=== PATIENT | female | born 1940 | race Caucasian/White ===

== ENCOUNTER 2019-10-28 17:42 | Outpatient (CLI) | payer MEDICARE, OTHER | END 2019-10-28 17:43 | disposition home or self-care (01) | LOC: COV 17:42 | PROVIDERS: ATTEND Family Medicine | DX: R05 Cough (principal); R50.9 Fever, unspecified | CPT/HCPCS: 81599 ==

== ENCOUNTER 2020-02-13 15:21 | Outpatient (CLI) | payer MEDICARE, OTHER ==
[2020-02-13 20:43] LABS: HB2 TOTAL 13.2 g/dL; HEMOGLOBIN A1C 0.73 g/dL; HEMOGLOBIN A1C % 7.2 % (4.6-6.2)
== END 2020-02-13 15:22 | disposition home or self-care (01) ==
LOC: LAB.S 15:21
PROVIDERS: ATTEND Nurse Practitioner
DX: E10.42 Type 1 diabetes mellitus with diabetic polyneuropathy (principal)
CPT/HCPCS: 36415; 80048; 83036; 84443

== ENCOUNTER 2020-02-13 21:13 | Outpatient (CLI) | payer MEDICARE, OTHER | END 2020-02-13 21:14 | disposition critical access hospital (66) | LOC: EMS 21:13 | PROVIDERS: ATTEND Surgery | DX: R73.09 Other abnormal glucose (principal); R53.1 Weakness; H53.8 Other visual disturbances | CPT/HCPCS: A0425; A0427 ==

== ENCOUNTER 2020-02-13 21:50 | Inpatient (IN) | payer MEDICARE, OTHER ==
[2020-02-13] MEDS ORDERED: SODIUM CHLORIDE 0.9% 1,000 ML IV STA ×2 (21:56)
--- NOTE | 2020-02-13 21:59 | ED Physician Documentation ---
History of Present Illness - Stated complaint Stated Complaint: HIGH BLOOD SUGAR - History obtained from History obtained from: Patient (Patient is a 79-year-old female insulin- dependent diabetic who presents with dysuria and hyperglycemia.She denies any chest pain or headache or neck pain she reports a history of recurrent urinary tract infections.Patient receives her primary care at the [facility].) Review of Systems Constitutional: reports: Reviewed and negative Eyes: reports: Reviewed and negative Ears: reports: Reviewed and negative Nose: reports: Reviewed and negative Throat: reports: Reviewed and negative Cardiac: reports: Reviewed and negative Respiratory: reports: Reviewed and negative GI: reports: Reviewed and negative : reports: Dysuria Skin: reports: Rash, Other (Rash to bilateral lower extremities) Musculoskeletal: reports: Reviewed and negative Neurologic: reports: Reviewed and negative Psychiatric: reports: Reviewed and negative Endocrine: reports: Reviewed and negative Immunocompromised: reports: Reviewed and negative PD PAST MEDICAL HISTORY - Present Medications Home Medications: Ambulatory Orders Medication Instructions Recorded Confirmed Clopidogrel [Plavix] 75 mg PO DAILY 02/13/20 02/13/20 Losartan [Cozaar] 50 mg PO DAILY 02/13/20 02/13/20 Metoprolol Tartrate 50 mg PO DAILY 02/13/20 02/13/20 Chlorthalidone 12.5 mg PO DAILY 02/14/20 02/14/20 Pravastatin [Pravachol] 10 mg PO DAILY 02/14/20 02/14/20 - Allergies Allergies/Adverse Reactions: Allergies Allergy/AdvReac Type Severity Reaction Status Date / Time Antihistamines - Alkylamine Allergy Unknown Verified 02/13/20 22:09 Sulfa (Sulfonamide Allergy Unknown Verified 02/13/20 22:09 Antibiotics) PD ED PE NORMAL - Vitals Vital signs reviewed: Yes - General General: Alert and oriented X 3, No acute distress - HEENT HEENT: PERRL - Neck Neck: Supple, no meningeal sign - Cardiac Cardiac: RRR, No murmur - Respiratory Respiratory: Clear bilaterally - Abdomen Abdomen: Normal bowel sounds, Soft, Non tender, Non distended - Derm Derm: Warm and dry - Extremities Extremities: No deformity - Neuro Neuro: Alert and oriented X 3 - Psych Psych: Normal mood, Normal affect Results - Vitals Vitals: Vital Signs - 24 hr 02/13/20 21:50 Temperature 37.1 C Heart Rate 106 H Respiratory 20 Rate Blood Pressure 153/77 H O2 Saturation 97 Oxygen O2 Source Room air - EKG (time done) 04:41 Rate: Other (no stemi) - Labs Labs: Laboratory Tests 02/13/20 02/13/20 02/13/20 22:15 23:25 23:25 WBC 12.2 H RBC 4.31 Hgb 12.1 Hct 36.3 L MCV 84.2 MCH 28.1 MCHC 33.3 RDW 12.8 Plt Count 256 MPV 10.1 Neut # (Auto) 10.4 H Lymph # (Auto) 1.1 L Valley # (Auto) 0.6 Eos # (Auto) 0.0 Baso # (Auto) 0.1 Absolute Nucleated RBC 0.00 Nucleated RBC % 0.0 VBG pH VBG pCO2 VBG pO2 VBG HCO3 VBG Total CO2 VBG O2 Saturation VBG Base Excess Sodium 126 L Potassium 4.3 Chloride 88 L Carbon Dioxide 21 Anion Gap 17.0 H BUN 37 H Creatinine 1.1 H Estimated GFR (MDRD) 48 L Glucose 529 H* Lactic Acid Calcium 9.8 Total Bilirubin 0.9 AST 19 ALT 21 Alkaline Phosphatase 77 Troponin I High Sens Total Protein 7.3 Albumin 3.9 Globulin 3.4 Albumin/Globulin Ratio 1.1 Urine Color YELLOW Urine Clarity HAZY Urine pH 5.0 Ur Specific Harvard 1.020 Urine Protein NEGATIVE Urine Glucose (UA) >=1000 H Urine Ketones 40 H Urine Occult Blood TRACE-INTA Urine Nitrite NEGATIVE Urine Bilirubin NEGATIVE Urine Urobilinogen 0.2 (NORMAL) Ur Leukocyte Esterase NEGATIVE Urine RBC 6-10 H Urine WBC >25 H Ur Squamous Epith Cells FEW Squamous Urine Bacteria Many H Ur Microscopic Review INDICATED Urine Culture Comments INDICATED Serum Ketones SMALL H 02/13/20 02/13/20 02/13/20 23:25 23:25 23:25 WBC RBC Hgb Hct MCV MCH MCHC RDW Plt Count MPV Neut # (Auto) Lymph # (Auto) Valley # (Auto) Eos # (Auto) Baso # (Auto) Absolute Nucleated RBC Nucleated RBC % VBG pH 7.306 L VBG pCO2 42.0 VBG pO2 152.5 H VBG HCO3 20.5 L VBG Total CO2 21.8 L VBG O2 Saturation 98.9 H VBG Base Excess -5.6 L Sodium Potassium Chloride Carbon Dioxide Anion Gap BUN Creatinine Estimated GFR (MDRD) Glucose Lactic Acid 1.7 Calcium Total Bilirubin AST ALT Alkaline Phosphatase Troponin I High Sens 55.3 H* Total Protein Albumin Globulin Albumin/Globulin Ratio Urine Color Urine Clarity Urine pH Ur Specific Harvard Urine Protein Urine Glucose (UA) Urine Ketones Urine Occult Blood Urine Nitrite Urine Bilirubin Urine Urobilinogen Ur Leukocyte Esterase Urine RBC Urine WBC Ur Squamous Epith Cells Urine Bacteria Ur Microscopic Review Urine Culture Comments Serum Ketones PD MEDICAL DECISION MAKING - ED course Complexity details: reviewed results, re-evaluated patient, considered differential (Insulin-dependent diabetes, hyperglycemia, urinary tract infection, dehydration, DKA. ), d/w patient, d/w managing consultant clinical professor, other (patient well appearing on exam. labs show dehydration and UTI. patient to be treated with IVF and insulin as well as antibiotics. spoke with hospitalist who agrees to accept this patient. patient updated and agreeable to admission.) - Consults Consults: Discussed case with (dr hiral emerson. will accept.), Request managing consultant clinical professor admit patient Departure - Departure Disposition: 66 [facility] DC/Xfer Clinical Impression: Hyperglycemia, Hyponatremia Urinary tract infection Qualifiers: Urinary tract infection type: acute cystitis Hematuria presence: without hematuria Qualified Code(s): N30.00 - Acute cystitis without hematuria Condition: Stable Discharge Date/Time: 02/14/20 00:25
[2020-02-13] MEDS ORDERED: cefTRIAXone 1 GM in SODIUM CHLORIDE 0.9% MINIBAG 100 ML IV STA (22:18)
[2020-02-13 22:37] LABS: BILIRUBIN,URINE NEGATIVE (NEGATIVE); GLUCOSE, URINE (UA) >=1000 mg/dL (NEGATIVE); KETONES,URINE (UA) 40 mg/dL (NEGATIVE); LEUKOCYTE ESTERASE, URINE NEGATIVE (NEGATIVE); NITRITE,URINE NEGATIVE (NEGATIVE); OCCULT BLOOD,URINE TRACE-INTA (NEGATIVE); PROTEIN,URINE NEGATIVE (NEGATIVE); UROBILINOGEN,URINE 0.2 (NORMAL) E.U./dL (NORMAL)
[2020-02-13 22:40] LABS: CLARITY,URINE HAZY (CLEAR)
[2020-02-13 22:50] LABS: BACTERIA,URINE Many /HPF (None Seen); SQUAMOUS EPITHELIAL CELL,UR FEW Squamous (<= Few)
[2020-02-13 23:41] LABS: BASOPHILS # (AUTO) 0.1 10^3/uL (0.0-0.1); BASOPHILS % (AUTO) 0.4 %; EOSINOPHILS % (AUTO) 0.2 %; HGB - HEMOGLOBIN 12.1 g/dL (12.0-16.0); LYMPHOCYTES # (AUTO) 1.1 10^3/uL (1.5-3.5); LYMPHOCYTES % (AUTO) 8.8 %; MEAN CORPUSCULAR HEMOGLOBIN 28.1 pg (27.0-31.0); MEAN CORPUSCULAR HGB CONC 33.3 g/dL (32.0-36.0); MEAN CORPUSCULAR VOLUME 84.2 fL (81.0-99.0); MEAN PLATELET VOLUME 10.1 fL (7.9-10.8); MONOCYTES # (AUTO) 0.6 10^3/uL (0.0-1.0); MONOCYTES % (AUTO) 4.7 %; NEUTROPHILS # (AUTO) 10.4 10^3/uL (1.5-6.6); NEUTROPHILS % (AUTO) 85.5 %; PLT - PLATELET COUNT 256 10^3/uL (130-450); RED BLOOD COUNT 4.31 10^6/uL (4.20-5.40); RED CELL DISTRIBUTION WIDTH 12.8 % (12.0-15.0); WHITE BLOOD COUNT 12.2 x10^3/uL (4.8-10.8)
[2020-02-13 23:48] LABS: VBG BASE EXCESS -5.6 mmol/L (-2 - +2); VBG PH 7.306 (7.31-7.41); VBG PO2 152.5 mmHg (25-47); VBG TOTAL CO2 21.8 mmol/L (24-29)
[2020-02-13 23:51] LABS: ALKALINE PHOSPHATASE 77 IU/L (42-121); ALT ALANINE AMINOTRANSFERASE 21 IU/L (10-60); AST ASPARTATE AMINOTRANSFERASE 19 IU/L (10-42); BILIRUBIN,TOTAL 0.9 mg/dL (0.2-1.0); BUN - BLOOD UREA NITROGEN 37 mg/dL (6-20); CALCIUM 9.8 mg/dL (8.5-10.3); CARBON DIOXIDE - CO2 21 mmol/L (21-32); CHLORIDE 88 mmol/L (101-111); CREATININE 1.1 mg/dL (0.4-1.0); SODIUM 126 mmol/L (135-145)
[2020-02-13 23:52] LABS: ALBUMIN 3.9 g/dL (3.2-5.5); ALBUMIN/GLOBULIN RATIO 1.1 (1.0-2.2); TOTAL PROTEIN 7.3 g/dL (6.7-8.2)
[2020-02-13 23:53] LABS: GLUCOSE 529 mg/dL (70-100)
[2020-02-13 23:59] LABS: KETONES, SERUM (ACETEST) SMALL (NEGATIVE)
[2020-02-14] MEDS ORDERED: ACETAMINOPHEN 325 MG TABLET PO PRN (00:02)
[2020-02-14] MEDS ORDERED: oxyCODONE 5 MG TABLET PO PRN (00:02)
[2020-02-14] MEDS ORDERED: ONDANSETRON ODT 4 MG TABLET TL PRN (00:02)
[2020-02-14] MEDS ORDERED: ONDANSETRON 4 MG/2 ML VIAL IVP PRN (00:02)
[2020-02-14] MEDS ORDERED: SODIUM CHLORIDE 0.9% 1,000 ML IV ONE (00:06)
[2020-02-14] MEDS ORDERED: INSULIN REGULAR HUMAN 100 UNIT/1 ML 10 ML MDV IVP STA (00:09)
[2020-02-14] MEDS ORDERED: INSULIN GLARGINE 300 UNIT/3 ML PEN SUBQ ONE (00:11)
--- NOTE | 2020-02-14 00:13 | HISTORY & PHYSICAL EXAMINATION ---
Chief Complaint - Chief Complaint Chief Complaint: told to come to ER by clinic History of Present Illness - Admitted From Admitted From:: Home/ER - History Obtained From Records Reviewed: [facility] and [facility] History obtained from: patient, EMR and Dr. Robbins - History of Present Illness HPI Comment/Other: Pleasant 79-year-old female who has type 1 diabetes mellitus and is on insulin pump. She gets her care at the [facility], and for the last few days has been noticing that her sugars have been climbing. In addition to that she felt as if she was having some type of allergic reaction on her legs. She walks through some grass and is felt that her legs have been swollen since that time with sores on her shins that it persisted. 10 days ago she noted pink coloration around her shins and attributed that to sunburn. She denies cough, dyspnea on exertion, orthopnea. She has had no chest pain, palpitations. She has had no sweats, fever, chills. Denies urgency, frequency. Because of the increasing sugar that was 510 this morning she called her doctor at the [facility] and they told her to seek care. She took her self to the walk-in clinic. At the walk-in clinic she was 371. At the walk-in clinic she was normotensive, afebrile, with a normal pulse. Normal oxygenation. Urinalysis had a cloudy appearance with 2+ leukocytes, negative nitrates, trace protein, large amount of ketones, and on examination had 2+ pitting edema of her legs bilaterally. There was erythema of both legs with 1 cm diameter lesions in various stages of healing. Some with eschar. Weeping, yellow serous fluid. The legs were minimally tender. She had a peripheral neuropathy. From the clinic she was asked to please report to the emergency room. That was around 4:30 in the afternoon. But she drove home because she had to take care of a situation with her dog and then get transported to the emergency room. In our emergency room at 11:30 at night she was again with normal vital signs except for a slight temp of 37.1. Heart rate was now 106. The emergency room provider reported normal extremity exam. White cell count was elevated at 12.2, venous blood gas was 7.30 with a PCO2 42. Bicarb 20.5 and low. Base excess - 5.6. Lactic acid 1.7. Sodium was 126. Potassium was normal at 4.3. BUN 37, creatinine 1.1, glucose 529. Liver enzymes were normal. Urinalysis had ketonuria, glucosuria, but no leukocyte Estrace. She was 6-10 red cells per high-power field, greater than 25 white cells, a few squamous cells. She also had many bacteria. It has been sent for culture. The emergency room physician felt that she was in early DKA. He did not feel that she needed the DKA protocol and felt that she could be admitted to [facility] as opposed to ICU. The admitting diagnosis of hyperglycemia with ketonuria (early DKA) from a UTI, and I am adding possible lower leg cellulitis from the history in the walk-in clinic. History - Past Medical History Cardiovascular: reports: Hypertension, Coronary artery disease (First heart attack 20 years ago when she was in [facility]. Associated with working out in the heat. She then had another heart attack in 2005 or 2006. Angiogram was done in [place] and she gives a report that her arteries were wide open. Since that time she has been on a statin and a) Respiratory: reports: None Neuro: reports: CVA (small lacunar in 2016. Presented is photophobia and problems with walking to the emergency room in the [facility] on [facility]. She has had MRI confirmed the small stroke. She has been on Plavix since then.), Peripheral neuropathy Endocrine/Autoimmune: reports: Type 1 diabetes (Diagnosed when she was in grad uate school when she was in an accident and traumatized her pancreas. They postulate that she may have had type I for many years, and went back as far as the age of 12 when she was ill with some type of viral illness at the same time polio was occurring. 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 First loss was a miscarriage. With her second baby she needed to have a hysterectomy for symptoms. It was not found out till after she had a hysterectomy and they did pathology analysis they found out she was with her fourth child and did not know it.) : reports: Incontinence HEENT: reports: Chronic vision loss, Other (Cataracts removed) Psych: reports: None Musculoskeletal: reports: Osteoarthritis Derm: reports: None MRSA Hx?: No - Past Surgical History /FIG BAR MACHINE OPERATOR: reports: Hysterectomy, Oophrectomy Cardiovascular: reports: Other (Coronary angiogram) HEENT: reports: Cataracts - Family & Social History Family History Comment/Other: father in his 90s of old age. Mom at age 50 of metastatic ovarian. Sister is alive and well and healthy. 2 children are healthy Living arrangement: At home Living Situation: Alone Social History Notes: She was born and raised in [place]. But she has lived all over the [facility] from [place] to [place] to [facility]. At one point she was working for the [employer] and also lived in [place]. She has been once and then him. Never remarried. She considers herself a loner and a recluse. 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 She is currently arguing with her ex- and her ex-'s employee benefits attorney since her spousal support has been cut by two thirds. One daughter lives in [place], 1 son lives in [place]. She never smoked. She rarely drinks. 1 Godwin Olguin will l ast for 4 days. She is a rare glass of red wine because she likes it. She is never had a problem with alcohol abuse or recreational substance abuse. - Substance History Use: Uses substance without health or social issues: NONE Abuse: Recurrent use of substance despite neg consequences: NONE Dependence: Experiences withdrawal or developed tolerances: NONE - POLST Patient has POLST: No POLST Status: Full Code Meds/Allgy - Home Medications Home Medications: Ambulatory Orders Medication Instructions Recorded Confirmed Clopidogrel [Plavix] 75 mg PO DAILY 02/13/20 02/13/20 Hydrochlorothiazide 12.5 mg PO DAILY 02/13/20 02/13/20 Losartan [Cozaar] 50 mg PO DAILY 02/13/20 02/13/20 Metoprolol Tartrate 50 mg PO DAILY 02/13/20 02/13/20 - Allergies Allergies/Adverse Reactions: Allergies Allergy/AdvReac Type Severity Reaction Status Date / Time Antihistamines - Alkylamine Allergy Unknown Verified 02/13/20 22:09 Sulfa (Sulfonamide Allergy Unknown Verified 02/13/20 22:09 Antibiotics) Review of Systems - Constitutional Constitutional: reports: Fatigue, Weight loss (She used to eat out a lot. But once staying in place orders occurred because of Kovic, she has been eating her own cooking and she hates it. So she is lost about 12 to 16 pounds.). denies: Fever, Chills, Malaise, Weakness, Poor appetite, Diaphoresis - Eyes Eyes: reports: Vision loss. denies: Pain, Irritation, Blurred vision - Ears, Nose & Throat Ears, Nose & Throat: denies: Ear pain, Hearing loss, Nasal discharge, Sore throat, Hoarseness - Cardiovascular Cariovascular: reports: Edema (Chronic in her legs. Ongoing for a couple of years. She sees a milk receiver at [facility] and they have done vascular studies of her legs to show that she has venous insufficiency. It is not from congestive heart failure. They recommended compression stockings and low-dose chlorthalidone at). denies: Irregular heart rate, Palpitations, Chest pain - Respiratory Respiratory: denies: Cough, Sputum production, Wheezing, Snoring - Gastrointestinal Gastrointestinal: reports: Constipation. denies: Abdominal pain, Abdominal distention, Diarrhea, Change in bowel habits, Rectal bleeding, Bloody stools, Nausea, Vomiting - Genitourinary Genitourinary: reports: Incontinence. denies: Dysuria, Frequency, Urgency, Hematuria - Musculoskeletal Musculoskeletal: reports: Back pain. denies: Muscle pain, Muscle aches, Stiffness, Muscle weakness, Gout, Joint pain - Integumentary Integumentary: reports: Rash (Started about 10 days ago with a light redness of her shins. Then the scratching started because of walking through the grass and allergic reaction. Redness of her legs with heat of the skin and oozing sores are new over the last 2 weeks.), Lesions - Neurological Neurological: reports: Dizziness. denies: General weakness, Focal weakness, Headache, Memory problems, Pre-existing deficit, Abnormal gait - Psychiatric Psychiatric: denies: Depression, Anxiety, Suicidal - Endocrine Endocrine: denies: Polyuria, Polydypsia, Polyphagia - Hematologic/Lymphatic Hematologic/Lymphatic: denies: Anemia, Bruising, Petechiae Prior Level of Functionality: She is a recluse and has hired somebody to come clean the house once a week. But she still bathes herself, drives herself, pays her own bills, and tries to cook for herself but hates cooking. She prefers to eat out. Her plan is to always stay in her home. She will hire / care providers if the need comes. Exam - Vital Signs Reviewed Vital Signs: Yes Vital Signs: Vital Signs x48h Temp Pulse Resp BP Pulse Ox 02/13/20 21:50 37.1 C 106 H 20 153/77 H 97 - Physical Exam General Appearance: positive: No acute distress, Alert, Other (A little cranky. Is late at night, she just wants to go to sleep and cannot believe what a fuss people are making.) Eyes Bilateral: positive: PERRL, EOMI ENT: positive: Dry mucous membranes Neck: positive: Thyroid nml, No JVD Respiratory: positive: Chest non-tender, No respiratory distress. negative: Wheezes, Rales, Rhonchi Cardiovascular: positive: Regular rate & rhythm. negative: Gallop/S4, Friction rub Peripheral Pulses: positive: 1+ Abdomen: positive: Non-tender, No organomegaly, Nml bowel sounds, No distention Skin: positive: Warm, Dry Extremities: positive: Other (Her legs have the shrunken down appearance of someone whose had tight edema and the edema is now resolving. In addition to the shrunken wrinkled appearance of the skin, she has open oozing ulcers that are all approximately 6 to 7 mm. Similar in various stages of healing. Some are still fresh and) Neurologic/Psychiatric: positive: Oriented x3, CN's nml (2-12), Motor nml Conclusion/Plan - Problem List (1) DKA, type 1 Conclusion/Plan: Porter to be mild, not needing ICU DKA protocol per ER doctor.He does not feel that there is any other source of her DKA other than infection from the urine at this time. Troponins were done and were 55.9 in the emergency room. Aic is 7.2% Plan: As such we will start to fluid resuscitate aggressively on Med Surg 1 L normal saline wide open now. She has received 1 L in the emergency room Since I cannot do an insulin drip on the floor, will do Lantus 10 units right now, Lantus in the morning, 10 units IV push insulin now, and insulin every 6 hours high sliding scale She has disconnected her own insulin pump Check BMP in 4 hours Monitor electrolytes frequently and supplement since the patient would be at risk for hypokalemia, hypocalcemia, hypophosphatemia, and hypomagnesemia. Repeat troponins in 2 hours and 6 hours Check EKG. EKG and troponins are to make sure she is not having an OH as the cause of her DKA. Treat cause of infection Qualifiers: Diabetes mellitus complication detail: without coma Qualified Code(s): E10.10 - Type 1 diabetes mellitus with ketoacidosis without coma (2) Urinary tract infection Conclusion/Plan: Unfortunately she has many squamous cells on urinalysis. This could be a contaminant. Bacteria could be from her vagina and she may not have a UTI. She is already received 1 dose of Rocephin in the emergency room and urine has been submitted for culture. On review of systems she is negative for urgency, frequency, incontinence, hematuria. She does have some slight back pain. Plan: Rocephin daily would be the treatment but since I am treating cellulitis as well, willl not repeat dosing Adjust antibiotics on the basis of culture Qualifiers: Urinary tract infection type: acute cystitis Hematuria presence: without hematuria Qualified Code(s): N30.00 - Acute cystitis without hematuria (3) Bilateral lower leg cellulitis Conclusion/Plan: She has had by lower lateral extremity changes since "walking through the grass". She attributes this to allergic response. She does not have the a ppearance of erythema nodosum. Or pyoderma gangrenosum. But she has a low- grade fever, elevated white cell count, and a newly uncontrolled diabetes type 1. Her cellulitis may be the source of her hyperglycemia as opposed to the urine. Plan: Already on Rocephin for UTI In reviewing [place] antibiotic guide, diabetics with erysipelas/cellulitis are at risk for Streptococcus, staph aureus, Enterobacter, and anaerobes. Early or mild infection can get away with Bactrim and penicillin. However for hospitalized patients, which she is now going to be, they recommend a carboplatinum plus staph coverage. In this hospital we use meropenem and I will add the Nasalide as opposed to vancomycin to avoid nephrotoxicity. Rocephin is already been given, as such blood cultures may not help. But will order blood cultures anyway. (4) Acute kidney injury Conclusion/Plan: At this time unable to quantitate. We have no old records to compare to. At 1540 in the afternoon her creatinine was 1. When she returned to us tonight she is 1.1. This could be attributed to prerenal azotemia with a BUN of 37. Plan: IV fluids for hydration Avoid nephrotoxic medications (5) Hyponatremia Conclusion/Plan: with elevated glucose. It's not HONK but I do suspect free water losses with her hypoglycemia Plan: NS and repeat labs. (6) Hypertension Conclusion/Plan: resume metoprolol and hold losartan for GLENROY and chlorthalidone until hydrated. Qualifiers: Hypertension type: essential hypertension Qualified Code(s): I10 - Essentia l (primary) hypertension - Lab Results Lab results reviewed: Yes Carlton Bones: 02/13/20 23:25 02/13/20 23:25 - EKG Results EKG Interpreted Independently: No EKG Comparison: Old EKG unavailable EKG Findings: She has sinus tachycardia 207. PAC. Left bundle branch block with poor R wave progression, inversion of T waves V4 through V6. Core Measures - Anticipated LOS I expect patient to be DC'd or transferred within 96 hours.: Yes - DVT/VTE - Prophylaxis VTE/DVT Device ordered at admit?: Yes
[2020-02-14] MEDS: SODIUM CHLORIDE FLUSH 0.9% 10 ML SYRINGE IVP SCH ×3 (01:21→16:53)
[2020-02-14] MEDS: METOPROLOL TARTRATE 50 MG TABLET PO SCH ×3 (01:36→21:14)
[2020-02-14 01:46] LABS: CALCIUM 9.2 mg/dL (8.5-10.3); CREATININE 1.1 mg/dL (0.4-1.0)
[2020-02-14] MEDS: MEROPENEM 500 MG in SODIUM CHLORIDE 0.9% MINIBAG 100 ML IV SCH ×3 (02:26→16:32)
[2020-02-14] MEDS: LINEZOLID 600 MG/300 ML 600 MG/300 ML BAG IV SCH ×2 (02:56→12:03)
[2020-02-14 06:00] LABS: CALCIUM 8.6 mg/dL (8.5-10.3)
[2020-02-14] MEDS: PANTOPRAZOLE 40 MG VIAL IVP SCH (06:07)
[2020-02-14] MEDS: SODIUM CHLORIDE FLUSH 0.9% 10 ML SYRINGE IVP PRN (06:08)
[2020-02-14 06:16] LABS: MAGNESIUM 1.8 mg/dL (1.7-2.8); PHOSPHORUS 3.3 mg/dL (2.5-4.6)
[2020-02-14] MEDS ORDERED: INSULIN REGULAR HUMAN 300 UNIT/3 ML VIAL SUBQ SCH (08:00)
--- NOTE | 2020-02-14 09:37 | XRAY Report ---
PROCEDURE: Chest 1 View X-Ray INDICATIONS: cough TECHNIQUE: One view of the chest was acquired. COMPARISON: None. FINDINGS: Surgical changes and devices: None. Lungs and pleura: No pleural effusions or pneumothorax. Chronic interstitial prominence. No focal c onsolidation or pleural effusion. Mediastinum: Mediastinal contours appear normal. Heart size is normal. Bones and chest wall: No suspicious bony lesions. Overlying soft tissues appear unremarkable. IMPRESSION: No acute cardiopulmonary disease. Reviewed by: Megan Harper MD on 02/14/2020 9:36 AM PDT Approved by: Megan Harper MD on 02/14/2020 9:36 AM PDT Station ID: [id number]
[2020-02-14] MEDS: ENOXAPARIN 40 MG/0.4 ML SYRINGE SUBQ SCH (09:58)
[2020-02-14] MEDS: SODIUM CHLORIDE 0.9% 1,000 ML IV SCH ×2 (10:00→18:04)
[2020-02-14] MEDS: INSULIN GLARGINE 300 UNIT/3 ML PEN SUBQ SCH ×2 (10:04→10:10)
[2020-02-14] MEDS: INSULIN ASPART 300 UNIT/3 ML PEN SUBQ SCH ×7 (10:05→21:12)
--- NOTE | 2020-02-14 11:45 | PHARMACY PROGRESS NOTE ---
- Best Possible Medication History Admit Date and Time: 02/14/20 0002 Processed by: Pharmacy Medication History completed: Yes Patient Interview: Completed Secondary Source(s): Pharmacy records, Insurance records As the person ultimately responsible for medication therapy, providers are able to order a medication from an existing home medication list in [facility] via the "Reconcile Routine" prior to Confirmation of that medication by ground support agent. Such practice is discouraged except when the physician, in their clinical judgment, deems that a medical need exists for a medication without regard to previous use.
[2020-02-14] MEDS ORDERED: INSULIN REGULAR HUMAN 300 UNIT/3 ML VIAL IVP ONE (13:59)
[2020-02-14] MEDS ORDERED: diphenhydrAMINE 25 MG CAPSULE PO STA (15:59)
[2020-02-14 16:01] LABS: CALCIUM 8.6 mg/dL (8.5-10.3); CREATININE 0.9 mg/dL (0.4-1.0); CRP - C-REACTIVE PROTEIN 4.4 mg/dL (0-1.0); MAGNESIUM 1.8 mg/dL (1.7-2.8); PHOSPHORUS 1.2 mg/dL (2.5-4.6)
[2020-02-14] MEDS ORDERED: POTASSIUM CHLORIDE 20 MEQ TABLET PO ONE (16:10)
[2020-02-14] MEDS ORDERED: POTASSIUM PHOSPHATE 21 MMOL in SODIUM CHLORIDE 0.9% 250 ML IV ONE (16:10)
[2020-02-14] MEDS ORDERED: INSULIN GLARGINE 300 UNIT/3 ML PEN SUBQ SCH (21:00)
[2020-02-14] MEDS ORDERED: cefTRIAXone 1 GM in SODIUM CHLORIDE 0.9% MINIBAG 100 ML IV SCH (22:00)
[2020-02-15] MEDS: SODIUM CHLORIDE FLUSH 0.9% 10 ML SYRINGE IVP SCH ×2 (00:07→09:36)
[2020-02-15] MEDS: SODIUM CHLORIDE 0.9% 1,000 ML IV SCH (00:40)
[2020-02-15 05:34] LABS: BASOPHILS # (AUTO) 0.1 10^3/uL (0.0-0.1); BASOPHILS % (AUTO) 0.6 %; EOSINOPHILS # (AUTO) 0.2 10^3/uL (0.0-0.7); EOSINOPHILS % (AUTO) 2.7 %; HGB - HEMOGLOBIN 12.1 g/dL (12.0-16.0); LYMPHOCYTES % (AUTO) 24.6 %; MEAN CORPUSCULAR HEMOGLOBIN 28.1 pg (27.0-31.0); MEAN CORPUSCULAR HGB CONC 33.2 g/dL (32.0-36.0); MEAN CORPUSCULAR VOLUME 84.7 fL (81.0-99.0); MEAN PLATELET VOLUME 9.6 fL (7.9-10.8); MONOCYTES # (AUTO) 0.6 10^3/uL (0.0-1.0); NEUTROPHILS # (AUTO) 5.2 10^3/uL (1.5-6.6); NEUTROPHILS % (AUTO) 64.9 %; PLT - PLATELET COUNT 261 10^3/uL (130-450); RED CELL DISTRIBUTION WIDTH 13.2 % (12.0-15.0)
[2020-02-15 05:52] LABS: CALCIUM 8.5 mg/dL (8.5-10.3); CREATININE 0.7 mg/dL (0.4-1.0); CRP - C-REACTIVE PROTEIN 3.4 mg/dL (0-1.0); MAGNESIUM 1.8 mg/dL (1.7-2.8); PHOSPHORUS 2.4 mg/dL (2.5-4.6)
[2020-02-15] MEDS: SODIUM CHLORIDE FLUSH 0.9% 10 ML SYRINGE IVP PRN (06:05)
[2020-02-15] MEDS: PANTOPRAZOLE 40 MG VIAL IVP SCH (06:05)
[2020-02-15] MEDS ORDERED: NEUTRA-PHOS 250 MG TABLET PO ONE (08:00)
[2020-02-15] MEDS ORDERED: cefTRIAXone 2 GM in SODIUM CHLORIDE 0.9% MINIBAG 100 ML IV SCH (09:00)
[2020-02-15] MEDS ORDERED: INSULIN LISPRO 80 UNIT SUBQ SCH (09:00)
[2020-02-15] MEDS: METOPROLOL TARTRATE 50 MG TABLET PO SCH (09:34)
[2020-02-15] MEDS: ENOXAPARIN 40 MG/0.4 ML SYRINGE SUBQ SCH (09:34)
--- NOTE | 2020-02-15 10:02 | Discharge Plan ---
Discharge Plan Problem Reviewed?: Yes Disposition: Home, Self Care Condition: Good Prescriptions: Doxycycline Monohydrate 100 mg PO BID 5 Days #10 capsule Diet: Diabetic Activity Restrictions: Activity as Tolerated Health Concerns: You were seen in the hospital because you had mild diabetic ketoacidosis due to elevated blood sugars. This was felt to be possibly secondary to a skin infecti on of your legs as well as a possible urinary tract infection. You were treated with IV antibiotics, IV fluids, and insulin with improvement. Plan of Treatment: Please continue taking your insulin as previously prescribed. Please take the antibiotic, doxycycline twice daily beginning February 15 for 5 more days. Please follow-up with your applied research director this week to ensure your blood sugars are controlled. Care Goals: Please return to the emergency department if you develop fevers, chills, nausea, vomiting or worsening redness of your lower extremities. Assessment: The patient expressed understanding of the treatment plan. Additional Instructions or Follow Up instructions: Please follow-up with your applied research director within this week to ensure your blood sugars are controlled. It is also recommended you follow-up with your primary care provider. No Smoking: If you smoke, Please STOP! Call for help.
--- NOTE | 2020-02-15 10:07 | DISCHARGE SUMMARY ---
Discharge Summary Admit Date: 02/14/20 Discharge Date: 02/15/20 Discharging Provider: Jean Marie Howell Primary Care Provider: [facility] Code Status: Attempt Resuscitation Condition at Discharge: Good Discharge Disposition: 01 Home, Self Care - DIAGNOSES Admission Diagnoses: DKA, type I Urinary tract infection Bilateral lower leg cellulitis Acute kidney injury Hyponatremia Hypertension Discharge Diagnoses with Status of Each Condition: Diabetic ketoacidosis - resolved. Type 1 diabetes mellitus - stable. Lower extremity cellulitis of bilateral legs - improving. Acute kidney injury - resolved. Hyponatremia - stable. Hypertension - stable. - HPI History of Present Illness: H&P per Dr. Noble: Pleasant 79-year-old female who has type 1 diabetes mellitus and is on insulin pump. She gets her care at the [facility], and for the last few days has been noticing that her sugars have been climbing. In addition to that she felt as if she was having some type of allergic reaction on her legs. She walks through some grass and is felt that her legs have been swollen since that time with sores on her shins that it persisted. 10 days ago she noted pink coloration around her shins and attributed that to sunburn. She denies cough, dyspnea on exertion, orthopnea. She has had no chest pain, palpitations. She has had no sweats, fever, chills. Denies urgency, frequency. Because of the increasing sugar that was 510 this morning she called her doctor at the [facility] and they told her to seek care. She took her self to the walk-in clinic. At the walk-in clinic she was 371. At the walk-in clinic she was normotensive, afebrile, with a normal pulse. Normal oxygenation. Urinalysis had a cloudy appearance with 2+ leukocytes, negative nitrates, trace protein, large amount of ketones, and on examination had 2+ pitting edema of her legs bilaterally. There was erythema of both legs with 1 cm diameter lesions in various stages of healing. Some with eschar. Weeping, yellow serous fluid. The legs were minimally tender. She had a peripheral neuropathy. From the clinic she was asked to please report to the emergency room. That was around 4:30 in the afternoon. But she drove home because she had to take care of a situation with her dog and then get transported to the emergency room. In our emergency room at 11:30 at night she was again with normal vital signs except for a slight temp of 37.1. Heart rate was now 106. The emergency room provider reported normal extremity exam. White cell count was elevated at 12.2, venous blood gas was 7.30 with a PCO2 42. Bicarb 20.5 and low. Base excess - 5.6. Lactic acid 1.7. Sodium was 126. Potassium was normal at 4.3. BUN 37, creatinine 1.1, glucose 529. Liver enzymes were normal. Urinalysis had ketonur ia, glucosuria, but no leukocyte Estrace. She was 6-10 red cells per high-power field, greater than 25 white cells, a few squamous cells. She also had many bacteria. It has been sent for culture. The emergency room physician felt that she was in early DKA. He did not feel that she needed the DKA protocol and felt that she could be admitted to [facility] as opposed to ICU. The admitting diagnosis of hyperglycemia with ketonuria (early DKA) from a UTI, and I am adding possible lower leg cellulitis from the history in the walk-in clinic. - HOSPITAL COURSE Hospital Course: She was admitted to the floor for mild diabetic ketoacidosis as well as a possible urinary tract infection and bilateral cellulitis to lower extremities. She was treated with IV fluids and subcutaneous insulin. Repeat labs showed that her anion gap had improved and eventually resolved. Her bicarbonate also increased and returned within normal limits. She was initially treated with meropenem and Zyvox IV for the lower extremity cellulitis was possible urinary tract infection. Her urine culture ultimately grew 10-50,000 colonies of polymicrobial growth which was felt to be a contaminant. The patient also felt like she did not have a urinary tract infection as she had no symptoms. Her antibiotics were de-escalated to ceftriaxone IV for the lower extremity cellulitis. Her CRP on admission was elevated at 4 and this trended down during his hospitalization. Her white count also normalized. She was changed back to her insulin pump on the day of discharge. Her blood glucose did become elevated again at 336. The patient felt well enough to go home and she preferred to be home then to remain hospitalized. Given she had been feeling better and labs in the morning did not suggest that she was in DKA, she was discharged home on her home insulin regimen. She has a follow-up appointment with her medical consultant this Sunday. She was informed to contact me if her blood glucose remains elevated or to return to the emergency department if she were to develop any symptoms such as nausea, vomiting, fevers, chills or persistently elevated blood glucose. She is agreeable to this plan. She was also discharged on doxycycline for 5 more days to complete 7 days of therapy for the lower extremity cellulitis. - ALLERGIES Allergies/Adverse Reactions: Allergies Allergy/AdvReac Type Severity Reaction Status Date / Time Antihistamines - Alkylamine Allergy Unknown Verified 02/13/20 22:09 Sulfa (Sulfonamide Allergy Unknown Verified 02/13/20 22:09 Antibiotics) - MEDICATIONS Home Medications: Ambulatory Orders Medication Instructions Recorded Confirmed Clopidogrel [Plavix] 75 mg PO QPM 02/13/20 02/14/20 Losartan [Cozaar] 100 mg PO QPM 02/13/20 02/14/20 Chlorthalidone 25 mg PO Q48H 02/14/20 02/14/20 Insulin Lispro [Humalog] 80 units SUBQ DAILY 02/14/20 02/14/20 Metoprolol Succinate 50 mg PO QPM 02/14/20 02/14/20 Pravastatin [Pravachol] 20 mg PO QPM 02/14/20 02/14/20 Doxycycline Monohydrate 100 mg PO BID 5 Days #10 capsule 02/15/20 - PHYSICAL EXAM AT DISCHARGE General Appearance: positive: No acute distress, Alert Eyes Bilateral: positive: Normal inspection ENT: positive: ENT inspection nml Neck: positive: Nml inspection Respiratory: positive: No respiratory distress. negative: Wheezes, Rales Cardiovascular: positive: Regular rate & rhythm, No murmur. negative: Tachycardia, Bradycardia Abdomen: positive: Non-tender, No distention. negative: Tenderness, Guarding, Rebound Skin: positive: Warm, Dry, Other (She has multiple small excoriations over her bilateral lower extremities. There is mild erythema over her bilateral shins. There is about +1 to +2 pitting edema. The extremities are not warm to touch and there is no tenderness) Extremities: positive: Full ROM, Pedal edema (+1 to +2 pitting edema in her bilateral lower extremities) Neurologic/Psychiatric: positive: Oriented x3, Motor nml. negative: Disoriented to person, Disoriented to place, Disoriented to time Physical Exam Other/Comments: Vital Signs - 24 hr 02/14/20 02/14/20 02/14/20 16:12 21:00 23:44 Temperature 36.3 C L 36.4 C L 36.7 C Heart Rate [ 68 70 66 Brachial] Respiratory 16 18 20 Rate Blood Pressure Blood Pressure 162/61 H 149/57 H [Left Brachial artery] Blood Pressure 133/76 H [Right Brachial artery] O2 Saturation 100 100 100 02/15/20 02/15/20 02/15/20 03:26 09:00 09:34 Temperature 36.6 C 36.4 C L Heart Rate [ 69 75 Brachial] Respiratory 16 16 Rate Blood Pressure 178/79 H Blood Pressure 169/58 H 178/79 H [Left Brachial artery] Blood Pressure [Right Brachial artery] O2 Saturation 100 100 02/15/20 02/15/20 02/15/20 10:44 13:40 14:23 Temperature 36.5 C Heart Rate [ 64 71 71 Brachial] Respiratory 18 Rate Blood Pressure Blood Pressure 151/58 H 176/56 H 159/56 H [Left Brachial artery] Blood Pressure [Right Brachial artery] O2 Saturation 99 Oxygen O2 Source Room air - LABS Result Diagrams: 02/15/20 05:20 02/15/20 05:20 - FOLLOW UP Follow Up: Is asked to follow-up with her primary care provider within 1 week as well as her medical consultant in two days as previously scheduled. - TIME SPENT Time Spent in Discharge (Minutes): 35
[2020-02-15 14:23] VITALS: BP 159/56
[2020-02-15] MEDS ORDERED: PRAVASTATIN 10 MG TABLET PO SCH (21:00)
[2020-02-15] MEDS ORDERED: CLOPIDOGREL 75 MG TABLET PO SCH (21:00)
[2020-02-15] MEDS ORDERED: METOPROLOL SUCCINATE 50 MG TABLET PO SCH (21:00)
[2020-02-15] MEDS ORDERED: LOSARTAN 50 MG TABLET PO SCH (21:00)
== END 2020-02-15 16:00 | disposition home or self-care (01) | DRG 638 ==
LOC: EDUNIT# → ED 21:50 → MS2 02-14 00:02
PROVIDERS: ADMIT Specialist; ATTEND Internal Medicine
DX: E10.10 Type 1 diabetes mellitus with ketoacidosis without coma (principal); N30.00 Acute cystitis without hematuria; E87.1 Hypo-osmolality and hyponatremia; L03.116 Cellulitis of left lower limb; L03.115 Cellulitis of right lower limb; N17.9 Acute kidney failure, unspecified; I10 Essential (primary) hypertension; E10.42 Type 1 diabetes mellitus with diabetic polyneuropathy; E10.51 Type 1 diabetes mellitus with diabetic peripheral angiopathy without gangrene; E86.0 Dehydration; R21 Rash and other nonspecific skin eruption; I25.10 Atherosclerotic heart disease of native coronary artery without angina pectoris; K21.9 Gastro-esophageal reflux disease without esophagitis; R32 Unspecified urinary incontinence; H54.7 Unspecified visual loss; K59.00 Constipation, unspecified; Z96.41 Presence of insulin pump (external) (internal); Z79.4 Long term (current) use of insulin; Z79.02 Long term (current) use of antithrombotics/antiplatelets; Z79.899 Other long term (current) drug therapy; Z86.73 Personal history of transient ischemic attack (TIA), and cerebral infarction without residual deficits; I25.2 Old myocardial infarction
CPT/HCPCS: 36415; 71045; 80048; 80053; 81001; 82009; 82803; 83605; 83735; 84100; 84484; 85025; 86140; 87040; 87086; 93005; 96365; 99283; 99285; A9270; J1650; J1815; J2020; J2185; 81003; 82310; 83036

== ENCOUNTER 2020-10-27 11:51 | Outpatient (CLI) | payer MEDICARE, OTHER | END 2020-10-27 11:52 | disposition critical access hospital (66) | LOC: EMS 11:51 | PROVIDERS: ATTEND Emergency Medicine | DX: I46.9 Cardiac arrest, cause unspecified (principal) | CPT/HCPCS: A0425; A0427 ==

== ENCOUNTER 2020-10-27 12:46 | Emergency (ER) | payer MEDICARE, OTHER ==
[2020-10-27] MEDS ORDERED: CALCIUM GLUCONATE 1000 MG/10 ML VIAL ONE (13:04)
[2020-10-27 13:27] LABS: VBG PCO2 62.8 mmHg (41-51); VBG PH 7.046 (7.31-7.41); VBG PO2 46.8 mmHg (25-47)
[2020-10-27 13:28] LABS: VBG HCO3 16.8 mmol/L (23-28); VBG OXYGEN SATURATION 67.5 % (60-80); VBG TOTAL CO2 18.8 mmol/L (24-29)
--- NOTE | 2020-10-27 13:33 | ED Physician Documentation ---
History of Present Illness - Stated complaint Stated Complaint: CPR - Chief complaint Chief Complaint: Critical Care - Additonal information Additional information: 79yF with pmh dm and cad p/w unresponsiveness on routine home visit by police. patient found to be unresponsive then lost pulse on scene, cpr was initiated. she had 40 minutes of cpr in field without any shocks administered, was intubated and had 7 rounds of epi via IO access. on arrival patient in asystole on monitor. calcium gluconate and bicarb immediately given for suspected hyperkalemia vs cardiac etiology, followed by epi with rosc X 2 (see code sheet), epi and levophed drips hung. I d/w daughter Neli at that time who stated that the patient would not wish for extreme resuscitative measures and family requested DNR/DNI. At that time the patient again lost pulses and no further ACLS meds were given. Drips turned off, ET tube removed and BVM was also withheld at that time. Review of Systems Unable to obtain: Unresponsive, Intubated PD PAST MEDICAL HISTORY - Past Medical History Cardiovascular: Hypertension, Coronary artery disease, MS Respiratory: None Neuro: CVA, Peripheral neuropathy Endocrine/Autoimmune: Type 1 diabetes GI: GERD SKI INSTRUCTOR: Other (-0-2-2. First loss was a miscarriage. With her second baby she needed to have a hysterectomy for symptoms. It was not found out till after she had a hysterectomy and they did pathology analysis they found out she was with her fourth child and did not know it.) : Incontinence HEENT: Chronic vision loss, Other (Cataracts removed) Psych: None Musculoskeletal: Osteoarthritis Derm: None - Past Surgical History /SKI INSTRUCTOR: Hysterectomy, Oophrectomy Cardiovascular: Other HEENT: Cataracts - Present Medications Home Medications: Ambulatory Orders Medication Instructions Recorded Confirmed Clopidogrel [Plavix] 75 mg PO QPM 02/13/20 02/14/20 Losartan [Cozaar] 100 mg PO QPM 02/13/20 02/14/20 Chlorthalidone 25 mg PO Q48H 02/14/20 02/14/20 Insulin Lispro [Humalog] 80 units SUBQ DAILY 02/14/20 02/14/20 Metoprolol Succinate 50 mg PO QPM 02/14/20 02/14/20 Pravastatin [Pravachol] 20 mg PO QPM 02/14/20 02/14/20 Doxycycline Monohydrate 100 mg PO BID 5 Days #10 capsule 02/15/20 - Allergies Allergies/Adverse Reactions: Allergies Allergy/AdvReac Type Severity Reaction Status Date / Time Antihistamines - Alkylamine Allergy Unknown Verified 02/13/20 22:09 Sulfa (Sulfonamide Allergy Unknown Verified 02/13/20 22:09 Antibiotics) - Social History Smoking Status: Never smoker - POLST Patient has POLST: No POLST Status: Full Code PD ED PE NORMAL - Vitals Vital signs reviewed: Yes - General General: Other (intubated, unresponsive) - HEENT HEENT: Atraumatic, Other (sluggishly reactive. gag reflex intermittently present) - Cardiac Cardiac: Other (intermittently pulseless) - Respiratory Respiratory: Other (bilateral breath sounds, ett 25 at the lip) - Abdomen Abdomen: Non distended - Back Back: Other (no obvious deformity) - Derm Derm: Other (mottled skin) - Extremities Extremities: Other (intubated, unresponsive) Results - Vitals Vitals: Oxygen O2 Source Room air - Labs Labs: Laboratory Tests 10/27/20 10/27/20 10/27/20 13:08 13:08 13:08 WBC RBC Hgb Hct MCV MCH MCHC RDW Plt Count MPV Neut # (Auto) Lymph # (Auto) [place] # (Auto) Eos # (Auto) Baso # (Auto) Absolute Nucleated RBC Nucleated RBC % Manual Slide Review WBC Morphology Platelet Estimate Platelet Morphology RBC Morph Micro Appear VBG pH 7.046 L VBG pCO2 62.8 H VBG pO2 46.8 VBG HCO3 16.8 L VBG Total CO2 18.8 L VBG O2 Saturation 67.5 VBG Base Excess -14.0 L Sodium 135 Potassium 5.5 H Chloride 91 L Carbon Dioxide 15 L Anion Gap 29.0 H BUN 65 H Creatinine 1.9 H Estimated GFR (MDRD) 26 L Glucose 897 H* Lactic Acid 6.4 H* Calcium 10.4 H 10/27/20 13:08 WBC 20.3 H RBC 4.05 L Hgb 11.7 L Hct 37.1 MCV 91.6 MCH 28.9 MCHC 31.5 L RDW 14.2 Plt Count 135 MPV 11.6 H Neut # (Auto) 16.0 H Lymph # (Auto) 3.2 [place] # (Auto) 0.2 Eos # (Auto) 0.3 Baso # (Auto) 0.1 Absolute Nucleated RBC 0.00 Nucleated RBC % 0.0 Manual Slide Review Indicated WBC Morphology NORMAL APPEARANCE Platelet Estimate DECREASED (<130,000) Platelet Morphology NORMAL APPEARANCE RBC Morph Micro Appear NORMAL APPEARANCE VBG pH VBG pCO2 VBG pO2 VBG HCO3 VBG Total CO2 VBG O2 Saturation VBG Base Excess Sodium Potassium Chloride Carbon Dioxide Anion Gap BUN Creatinine Estimated GFR (MDRD) Glucose Lactic Acid Calcium PD MEDICAL DECISION MAKING - ED course ED course: We were able to contact daughter Neli and she advises that the patient would not wish for advanced resuscitative measures and we discussed over the phone that we will be making the patient DNR/DNI at this time and will withdraw care. Attempted to contact the patient's other child Jose Paz however his phone went straight to voicemail. Neli is aware and will try to get in touch with him. Departure - Departure Disposition: 20 Discharge Date/Time: 10/27/20 16:20
[2020-10-27 18:13] LABS: BASOPHILS # (AUTO) 0.1 10^3/uL (0.0-0.1); BASOPHILS % (AUTO) 0.5 %; EOSINOPHILS # (AUTO) 0.3 10^3/uL (0.0-0.7); EOSINOPHILS % (AUTO) 1.4 %; HCT - HEMATOCRIT 37.1 % (37.0-47.0); HGB - HEMOGLOBIN 11.7 g/dL (12.0-16.0); LYMPHOCYTES # (AUTO) 3.2 10^3/uL (1.5-3.5); LYMPHOCYTES % (AUTO) 15.6 %; MEAN CORPUSCULAR HEMOGLOBIN 28.9 pg (27.0-31.0); MEAN CORPUSCULAR HGB CONC 31.5 g/dL (32.0-36.0); MEAN CORPUSCULAR VOLUME 91.6 fL (81.0-99.0); MEAN PLATELET VOLUME 11.6 fL (7.9-10.8); MONOCYTES # (AUTO) 0.2 10^3/uL (0.0-1.0); MONOCYTES % (AUTO) 1.1 %; NEUTROPHILS % (AUTO) 78.7 %; PLT - PLATELET COUNT 135 10^3/uL (130-450); RED BLOOD COUNT 4.05 10^6/uL (4.20-5.40); RED CELL DISTRIBUTION WIDTH 14.2 % (12.0-15.0); SLIDE REVIEW? Indicated; WHITE BLOOD COUNT 20.3 x10^3/uL (4.8-10.8)
[2020-10-27 18:21] LABS: CALCIUM 10.4 mg/dL (8.5-10.3); CREATININE 1.9 mg/dL (0.4-1.0); POTASSIUM 5.5 mmol/L (3.5-5.0)
[2020-10-27 18:45] LABS: PLATELET ESTIMATE, MANUAL DECREASED (<130,000) (NORMAL); PLATELET MORPHOLOGY NORMAL APPEARANCE (NORMAL); RBC MORPHOLOGY (MULTIPLE) NORMAL APPEARANCE (NORMAL); WBC MORPHOLOGY (MULTIPLE) NORMAL APPEARANCE (NORMAL)
--- OUTSIDE RECORDS SUMMARY | 2020-11-09 17:54 | EXTERNAL MEDICAL SUMMARY RPT | Continuity of Care Document ---
:1940 Demographics Phone Unavailable Preferred Language Unknown Marital Status Unknown Congregational Affiliation Unknown Race Unknown Ethnic Group Unknown Author Organization [facility] Address [address] [id number] Phone Social History date description facility [phone]
== END 2020-10-27 15:22 | disposition expired ==
LOC: EDUNIT# → EDSEX → ED 12:46
DX: I46.9 Cardiac arrest, cause unspecified (principal); R57.0 Cardiogenic shock; N17.9 Acute kidney failure, unspecified; E10.65 Type 1 diabetes mellitus with hyperglycemia; E10.42 Type 1 diabetes mellitus with diabetic polyneuropathy; E87.5 Hyperkalemia; I10 Essential (primary) hypertension; Z79.4 Long term (current) use of insulin
CPT/HCPCS: 36415; 80048; 82803; 83605; 85025; 92950; 99281